=== PATIENT | female | born 1940 | race Caucasian/White ===

== ENCOUNTER 2021-01-04 07:40 | Emergency (ER) | payer MEDICARE, BC ==
[2021-01-04] MEDS: Lidocaine 1% with EPINEPHrine 1:100,000 50 ML MDV INFILT ONE (08:07)
--- NOTE | 2021-01-04 08:39 | EDM.PDOC ---
ED HPI GENERAL MEDICAL PROBLEM - General Chief Complaint: Lower Extremity Injury/Pain Stated Complaint: FELL ON KNEE Time Seen by Provider: 01/04/21 07:40 Source of Information: Reports: Patient, Family History Limitations: Reports: No Limitations - History of Present Illness INITIAL COMMENTS - FREE TEXT/NARRATIVE: 80-year-old female stumbled in her house this morning landing on her left knee sustaining a large transverse laceration across the anterior left knee. There is no involvement of the underlying muscles, she can ambulate but the laceration extends down to the patellar fascia and is 14 cm across. Bleeding is controlled at this time. Onset: Sudden Duration: Hour(s): (1 hour ago) Location: Reports: Upper Extremity, Left Associated Symptoms: Reports: No Other Symptoms - Related Data Allergies Allergy/AdvReac Type Severity Reaction Status Date / Time No Known Allergies Allergy Verified 01/04/21 07:56 Home Meds: Home Meds Loratadine 10 mg PO ASDIRECTED PRN 01/04/21 [History] Metoprolol Succinate 200 mg PO DAILY 01/04/21 [History] Potassium Chloride 20 meq PO BID 01/04/21 [History] allopurinoL [Zyloprim] 100 mg PO DAILY 01/04/21 [History] amLODIPine [Norvasc] 5 mg PO DAILY 01/04/21 [History] Past Medical History HEENT History: Reports: Impaired Vision Cardiovascular History: Reports: Hypertension [employer] History: Reports: - Infectious Disease History Infectious Disease History: Reports: Chicken Pox, Measles, Mumps - Past Surgical History GI Surgical History: Reports: Appendectomy Social & Family History - Tobacco Use Tobacco Use Status *Q: Never Tobacco User - Caffeine Use Caffeine Use: Reports: Soda, Tea - Recreational Drug Use Recreational Drug Use: No Review of Systems - Review of Systems Review Of Systems: See Below Constitutional: Denies: Fever Respiratory: Denies: Shortness of Breath Cardiovascular: Denies: Chest Pain Genitourinary: Reports: No Symptoms Musculoskeletal: Reports: Leg Pain (Left side) Neurological: Denies: Paresthesia Psychiatric: Reports: Anxiety ED EXAM, GENERAL - Physical Exam Exam: See Below Exam Limited By: No Limitations General Appearance: Alert, No Apparent Distress, Anxious Head: Atraumatic Neck: Non-Tender Respiratory/Chest: No Respiratory Distress Cardiovascular: Regular Rate, Rhythm Extremities: Other (Exam is otherwise limited to the lower extremities. Patient has a large transverse 14 cm laceration across the anterior aspect of the left knee. All of the subcutaneous tissue was exposed, the fascia overlying the patella and patellar tendons are also exposed. ) Neurological: Alert, Oriented Psychiatric: Anxious Course - Vital Signs Last Recorded V/S: Last Vital Signs Temp 95.7 F L 01/04/21 07:43 Pulse 61 01/04/21 07:43 Resp 16 01/04/21 07:43 BP 181/65 H 01/04/21 07:43 Pulse Ox 99 01/04/21 07:43 - Orders/Labs/Meds Orders: Active Orders 24 hr Category Date Time Status DME for Discharge [COMM] Stat Oth 01/04/21 08:32 Ordered Meds: Medications Discontinued Medications Generic Name Dose Route Start Last Admin Trade Name [place] PRN Reason Stop Dose Admin Bacitracin 1 dose 01/04/21 08:32 01/04/21 08:45 Bacitracin Oint 1 Gm U/D Packet TOP 01/04/21 08:33 1 dose ONETIME ONE Administration Lidocaine/Epinephrine 50 ml 01/04/21 07:43 01/04/21 08:07 Lidocaine 1% With Epinephrine 1:100,000 50 Ml Mdv INFILT 01/04/21 07:44 50 ml ONETIME ONE Administration Lidocaine/Epinephrine Confirm 01/04/21 07:47 01/04/21 08:44 Lidocaine 1% With Epinephrine 1:100,000 50 Ml Mdv Administered 01/04/21 07:48 Not Given Dose 50 ml .ROUTE .STK-MED ONE - Re-Assessments/Exams Free Text/Narrative Re-Assessment/Exam: 01/04/21 08:34 The wound was anesthetized with 20 cc of lidocaine with epinephrine. It was flushed thoroughly with a liter of saline and then cleansed further with sterile saline soaked gauze. Nine 4-0 Vicryl sutures were used to close the subcutaneous tissue, and a 3-0 running suture was used to close the external laceration. Topical bacitracin was applied along with nonstick dressings and a mild pressure dressing, crutches were provided and she was placed on cephalexin 500 mg 3 times a day for 7 days. Also given 10 [place] for extra pain control. Sutures can be removed in 12 days, 16 of January. Recheck sooner if concerns of infection or not healing satisfactorily. Increase activity as tolerated. Departure - Departure Time of Disposition: 08:46 Disposition: Home, Self-Care 01 Clinical Impression: Laceration of knee, left, complicated Qualifiers: Encounter type: initial encounter Qualified Code(s): S81.012A - Laceration without foreign body, left knee, initial encounter - Discharge Information Instructions: Laceration Care, Adult Referrals: PCP,None [Primary Care Provider] - Forms: ED Department Discharge Care Plan Goals: Keep wound covered and clean while healing, increase activity as tolerated. Use crutches initially, take antibiotic until gone and a regular dose of ibuprofen or naproxen will help with pain, adding stronger pain medication if needed. Return for recheck at any time if concerns of infection or not healing satisfactorily. Sepsis Event Note (ED) - Evaluation Sepsis Screening Result: No Definite Risk - Focused Exam Vital Signs: Vital Signs Temp Pulse Resp BP Pulse Ox 01/04/21 07:43 95.7 F L 61 16 181/65 H 99 - My Orders Last 24 Hours: My Active Orders 01/04/21 08:32 DME for Discharge [COMM] Stat - Assessment/Plan Last 24 Hours: My Active Orders 01/04/21 08:32 DME for Discharge [COMM] Stat
[2021-01-04] MEDS: Lidocaine 1% with EPINEPHrine 1:100,000 50 ML MDV ONE (08:44)
[2021-01-04] MEDS: Bacitracin Oint 1 GM U/D Packet TOP ONE (08:45)
== END 2021-01-04 08:46 | disposition home or self-care (01) ==
LOC: JP.ED 07:40
DX: S81.012A Laceration without foreign body, left knee, initial encounter (principal); I10 Essential (primary) hypertension; Z79.899 Other long term (current) drug therapy; W01.0XXA Fall on same level from slipping, tripping and stumbling without subsequent striking against object, initial encounter
CPT/HCPCS: 12035; 99282-25